=== PATIENT | female | born 1975 | race Caucasian/White ===

== ENCOUNTER 2021-05-08 06:40 | Emergency (ER) | payer BC ==
--- NOTE | 2021-05-08 06:57 | EDM.PDOC ---
<Danny Gimenez - Last Filed: 05/08/21 06:59> ED HPI GENERAL MEDICAL PROBLEM - General Chief Complaint: Cardiovascular Problem Stated Complaint: CHEST PAIN Time Seen by Provider: 05/08/21 06:45 - History of Present Illness INITIAL COMMENTS - FREE TEXT/NARRATIVE: CHIEF COMPLAINT(S): Chest pain HISTORY OF PRESENT ILLNESS: This is a 45-year-old woman with a past medical history of restless leg syndrome who comes to the emergency department with a chief complaint of chest pain. The patient states that for the last 2 days she has been experiencing chest pain. She describes the chest pain as dull with intermittent exacerbations located on the left side of her chest which radiates to her left arm and now up to her jaw. She states that she woke up this morning with some vomit in her throat but denies any nausea. She denies any diaphoresis. She states that the pain is worsened by lying flat. There are no relieving factors. She denies any recent travel, recent surgery, prior history of DVT or PE. She currently rates her pain as 8 out of 10. She denies any early onset CAD or sudden onset at young age in her family. She states that she does have a mild cough which is nonproductive and denies any fevers. She states that she is not vaccinated. She denies any personal history of CAD or CHF. She states that she tried gabapentin without any relief. In addition she states that the pain is making her feel short of breath. She denies any lower extremity edema. She denies any heavy lifting. REVIEW OF SYSTEMS: Constitutional: Denies fever, chills. Eyes: Denies eye pain Ears, Nose, Mouth, & Throat: Denies earache Cardiovascular: Positive for chest pain Respiratory: Positive for shortness of breath and nonproductive cough Gastrointestinal: Denies Nausea, vomiting, diarrhea, hematochezia. Genitourinary: Denies hematuria Skin:Denies a rash MSK: Positive for left arm pain Neurological: Denies blurred vision, numbness, tingling, weakness Psychiatric: Denies depression PAST MEDICAL HISTORY: As per history of present illness and as reviewed below otherwise noncontributory. SURGICAL HISTORY: As per history of present illness and as reviewed below otherwise noncontributory. LMP: 3 weeks ago SOCIAL HISTORY: As per history of present illness and as reviewed below otherwise noncontributory. FAMILY HISTORY: As per history of present illness and as reviewed below otherwise noncontributory. EXAMINATION OF ORGAN SYSTEMS/BODY AREAS: Constitutional: Blood pressure was 144/91, heart rate 102, respiratory rate 18 with an oxygen saturation 97% on room air. General: Young woman who appears to be in a moderate amount of pain. Patient is tearful and crying Psychiatric: Appropriate mood and affect. Eyes: No scleral icterus or conjunctival erythema ENMT: Moist mucous membranes. No pharyngeal erythema Cardiovascular: Tachycardic but regular no gallops, murmurs, or rubs. Bilateral upper extremity pulses symmetric and intact. No peripheral edema. No JVD. Respiratory: Lungs clear to auscultation bilaterally. No wheezes, rales, or rhonchi. Gastrointestinal: Soft, non-tender, non-distended. Normoactive bowel sounds Genitourinary: No suprapubic tenderness Musculoskeletal: Normal range of motion. Skin: No lesions or abrasions. Neurological: Alert, GCS 15 strength and sensation grossly intact in upper and lower extremities bilaterally MEDICAL DECISION MAKING AND COURSE IN THE ED WITH INTERPRETATION/REVIEW OF DIAGNOSTIC STUDIES: This is a 45-year-old woman with a past medical history of restless leg syndrome who comes to the emergency department with left-sided chest pain associate with shortness of breath and nonproductive cough. At this time patient's vital signs are stable. The patient appears nontoxic. We did obtain a screening EKG which was unremarkable. Cardiac monitoring at this time did reveal sinus rhythm and pulse oximetry with good waveform was 98% on room air. Given the typical story will obtain a cardiac work-up however she is low risk for ACS given her age and risk factors. We will provide the patient with 324 mg of p.o. aspirin. PERC Rule Age (>/=50): No (0) HR (>/=100): Yes (1) SaO2 on RA <95%: No (0) Unilateral Leg Swelling: No (0) Hemoptysis: No (0) Surgery/Trauma in last month requiring general anesthesia: No (0) Prior PE or DVT: : No (0) Hormone Use: No (0) PERC positive Since PERC Positive, we will obtain a D-dimer to further evaluate for PE DDx: ACS, musculoskeletal strain, pulmonary embolism Patient came during signout. Patient was signed out to [facility] day team physician pending work-up and final disposition. [facility] CONDITION: Fair PROCEDURES: Cardiac monitoring interpretation, pulse oximetry interpretation FINAL IMPRESSION(S)/DIAGNOSES: 1. Acute chest pain 2. Acute shortness of breath 3. Acute nonproductive cough Danny Gimenez M.D. - Related Data Allergies Allergy/AdvReac Type Severity Reaction Status Date / Time No Known Allergies Allergy Verified 05/08/21 06:48 Home Meds: Home Meds ALPRAZolam [Xanax] 0.25 mg PO TID PRN #12 tablet 05/08/21 [Rx] Gabapentin [Neurontin] 300 mg PO QID 05/08/21 [History] Hydrocodone/Acetaminophen [HYDROcodone-Acetaminophen 5-325 MG] 1 each PO Q6H PRN #14 tab 05/08/21 [Rx] Social & Family History - Tobacco Use Second Hand Smoke Exposure: No - Caffeine Use Caffeine Use: Reports: None - Recreational Drug Use Recreational Drug Use: No ED ROS GENERAL - Review of Systems Review Of Systems: See Below ED EXAM, GENERAL - Physical Exam Exam: See Below Departure - Departure Disposition: Home, Self-Care 01 Clinical Impression: COVID-19 Instructions: COVID-19: What to Do If You Are Sick- [facility] (07/31/2020) Referrals: PCP,None [Primary Care Provider] - Forms: ED Department Discharge Additional Instructions: Your COVID-19 test is positive. You should self isolate until cleared by the [facility]. I sent prescriptions to [facility]. Please be mindful not to use these together as they can both be respiratory depressants. If you have worsening shortness of breath or chest pain you should come back to the hospital for reassessment. Right now your chest x-ray and all of your labs look great. I did refer you to the infusion clinic for monoclonal antibody infusion. Once you have been symptom-free for 2 weeks you will be eligible for the Covid vaccine. I would encourage you to get vaccinated against Covid. And others a lot of misinformation on the Internet, but in my practice I have seen vaccinated patients do much better than unvaccinated patients, and I believe it is the only way that is a country we will get over this very difficult time. I know us healthcare professionals would really appreciate if more people were vaccinated. Thank you so much for trusting us with your medical care today, and if you need anything or if anything changes, we are always available for your service. The following information is given to patients seen in the emergency department who are being discharged to home. This information is to outline your options for follow-up care. We provide all patients seen in our emergency department with a follow-up referral. The need for follow-up, as well as the timing and circumstances, are variable depending upon the specifics of your emergency department visit. If you don't have a primary care physician on staff, we will provide you with a referral. We always advise you to contact your personal physician following an emergency department visit to inform them of the circumstance of the visit and for follow-up with them and/or the need for any referrals to a consulting specialist. The emergency department will also refer you to a specialist when appropriate. This referral assures that you have the opportunity for follow-up care with a specialist. All of these measure are taken in an effort to provide you with optimal care, which includes your follow-up. Under all circumstances we always encourage you to contact your private physician who remains a resource for coordinating your care. When calling for follow-up care, please make the office aware that this follow-up is from your recent emergency room visit. If for any reason you are refused follow-up, please contact the [facility] Emergency Department at and asked to speak to the emergency department charge nurse. Please follow up with your primary care physician. If you do not have a primary care physician, see below: [facility] [address] [place] [address] [facility] [address] [place] [address] [facility] [address] [place] [address] Sepsis Event Note (ED) - Evaluation Sepsis Screening Result: No Definite Risk <Les Smith - Last Filed: 05/08/21 08:22> ED HPI GENERAL MEDICAL PROBLEM - General Source of Information: Reports: Patient History Limitations: Reports: No Limitations Chest Pain Score (Numeric/FACES): 8 Course - Vital Signs Last Recorded V/S: Last Vital Signs Temp 97.5 F 05/08/21 06:44 Pulse 102 H 05/08/21 08:03 Resp 16 05/08/21 08:03 BP 123/92 H 05/08/21 08:03 Pulse Ox 96 05/08/21 08:03 - Orders/Labs/Meds Labs: Laboratory Tests 05/08/21 05/08/21 05/08/21 Range/Units 06:46 06:46 06:46 WBC 4.41 (4.0-11.0) K/uL RBC 4.53 (4.30-5.90) M/uL Hgb 12.2 (12.0-16.0) g/dL Hct 37.8 (36.0-46.0) % MCV 83.4 (80.0-98.0) fL MCH 26.9 L (27.0-32.0) pg MCHC 32.3 (31.0-37.0) g/dL RDW Std Deviation 51.5 (28.0-62.0) fl RDW Coeff of Bruce 17 H (11.0-15.0) % Plt Count 287 (150-400) K/uL MPV 9.70 (7.40-12.00) fL Neut % (Auto) 58.0 (48.0-80.0) % Lymph % (Auto) 24.0 (16.0-40.0) % Clinch % (Auto) 16.8 H (0.0-15.0) % Eos % (Auto) 0.7 (0.0-7.0) % Baso % (Auto) 0.5 (0.0-1.5) % Neut # (Auto) 2.6 (1.4-5.7) K/uL Lymph # (Auto) 1.1 (0.6-2.4) K/uL Clinch # (Auto) 0.7 (0.0-0.8) K/uL Eos # (Auto) 0.0 (0.0-0.7) K/uL Baso # (Auto) 0.0 (0.0-0.1) K/uL Nucleated RBC % 0.0 /100WBC Nucleated RBCs # 0 K/uL D-Dimer, Quantitative 0.36 (0.0-0.50) mg/L FEU Sodium 137 (136-145) mmol/L Potassium 4.0 (3.5-5.1) mmol/L Chloride 102 (98-107) mmol/L Carbon Dioxide 22.0 (21.0-32.0) mmol/L BUN 12 (7.0-18.0) mg/dL Creatinine 0.9 (0.6-1.0) mg/dL Est Cr Clr Drug Dosing 61.12 mL/min Estimated GFR (MDRD) > 60.0 ml/min Glucose 158 H (74-106) mg/dL Calcium 8.9 (8.5-10.1) mg/dL Magnesium 1.8 (1.8-2.4) mg/dL Troponin I < 0.050 (0.000-0.056) ng/mL Influenza Type A RNA (NEGATIVE) Influenza Type B RNA (NEGATIVE) SARS-CoV-2 RNA (TL) (NEGATIVE) 05/08/21 Range/Units 06:48 WBC (4.0-11.0) K/uL RBC (4.30-5.90) M/uL Hgb (12.0-16.0) g/dL Hct (36.0-46.0) % MCV (80.0-98.0) fL MCH (27.0-32.0) pg MCHC (31.0-37.0) g/dL RDW Std Deviation (28.0-62.0) fl RDW Coeff of Bruce (11.0-15.0) % Plt Count (150-400) K/uL MPV (7.40-12.00) fL Neut % (Auto) (48.0-80.0) % Lymph % (Auto) (16.0-40.0) % Clinch % (Auto) (0.0-15.0) % Eos % (Auto) (0.0-7.0) % Baso % (Auto) (0.0-1.5) % Neut # (Auto) (1.4-5.7) K/uL Lymph # (Auto) (0.6-2.4) K/uL Clinch # (Auto) (0.0-0.8) K/uL Eos # (Auto) (0.0-0.7) K/uL Baso # (Auto) (0.0-0.1) K/uL Nucleated RBC % /100WBC Nucleated RBCs # K/uL D-Dimer, Quantitative (0.0-0.50) mg/L FEU Sodium (136-145) mmol/L Potassium (3.5-5.1) mmol/L Chloride (98-107) mmol/L Carbon Dioxide (21.0-32.0) mmol/L BUN (7.0-18.0) mg/dL Creatinine (0.6-1.0) mg/dL Est Cr Clr Drug Dosing mL/min Estimated GFR (MDRD) ml/min Glucose (74-106) mg/dL Calcium (8.5-10.1) mg/dL Magnesium (1.8-2.4) mg/dL Troponin I (0.000-0.056) ng/mL Influenza Type A RNA NEGATIVE (NEGATIVE) Influenza Type B RNA NEGATIVE (NEGATIVE) SARS-CoV-2 RNA (TL) POSITIVE H (NEGATIVE) Meds: Medications Discontinued Medications Generic Name Dose Route Start Last Admin Trade Name Freq PRN Reason Stop Dose Admin Acetaminophen 1,000 mg 05/08/21 07:17 05/08/21 07:21 Acetaminophen 500 Mg Tab PO 05/08/21 07:18 1,000 mg ONETIME ONE Administration Hydrocodone Bitart/Acetaminophen 1 tab 05/08/21 06:59 Acetaminophen/Hydrocodone 325-5 Mg Tab PO 05/08/21 07:00 ONETIME ONE - Re-Assessments/Exams Free Text/Narrative Re-Assessment/Exam: 05/08/21 07:15 Patient care transitioned from Dr. Gimenez pending labs, imaging, and patient reassessment. 05/08/21 07:19 Percocet d/c'ed as patient does not have a ride home and cannot call anyone for a ride back; will trial tylenol. She does not note a relief of pain after initial meds. 05/08/21 07:36 HEART score = 2 (low score, risk of MACE 0.9-1.7%) 05/08/21 08:15 Patient's COVID test is positive. CXR is normal. D-dimer is negative. Return precautions were discussed at great length. Patient's pain still 7/10; we had a long discussion regarding analgesia and I am comfortable prescribing a short course of norco to this patient. She understands risks/benefits of opioid therapy. Patient also has a lot of anxiety and is requesting a short course of anxiolytic. Patient has taken xanax in the past without adverse reaction and is requesting a short prescription until telemedicine appointment with her physician on Wednesday. I believe this is reasonable, although I cautioned patient about using these two medications together as they are both respiratory depressants, and she understands. Will refer patient for monoclonal antibody therapy. Departure - Departure Time of Disposition: 08:18 Condition: Good Sepsis Event Note (ED) - Focused Exam Vital Signs: Vital Signs Temp Pulse Resp BP Pulse Ox 05/08/21 08:03 102 H 16 123/92 H 96 05/08/21 07:30 100 18 154/92 H 96 05/08/21 06:44 97.5 F 104 H 20 144/91 H 97
[2021-05-08] MEDS ORDERED: Acetaminophen/HYDROcodone 325-5 MG Tab PO ONE (06:59)
--- NOTE | 2021-05-08 07:01 | PCM.EKG ---
#1 Interpretation EKG Date: 05/08/21 Time: 06:44 Rhythm: NSR Rate (Beats/Min): 96 [place]: Normal P-Wave: Present QRS: Normal ST-T: Normal QT: Normal Comparison: NA - No Prior EKG (Sinus Rhythm)
--- NOTE | 2021-05-08 07:09 | CR ---
INDICATION: Chest pain. TECHNIQUE: Chest 1 views. COMPARISON: None. FINDINGS: Cardiovascular and mediastinum: Heart size and vasculature are normal in caliber and appearance. Lungs and pleural spaces: Lungs are clear. No sign of infiltrate or mass. No sign of pleural effusion. No pneumothorax. Bones and soft tissues: No significant findings. IMPRESSION: No acute or significant findings. Dictated by William Upton MD @ 05/08/2021 7:08:00 AM (Electronically Signed)
[2021-05-08] MEDS ORDERED: Acetaminophen 500 MG Tab PO ONE (07:17)
[2021-05-08 07:20] LABS: BLOOD UREA NITROGEN,BUN 12 mg/dL (7.0-18.0); CHLORIDE,CL 102 mmol/L (98-107); GLUCOSE RANDOM 158 mg/dL (74-106); SODIUM,NA 137 mmol/L (136-145)
[2021-05-08 07:31] LABS: CORONAVIRUS COVID-19 NAA POSITIVE (NEGATIVE); INFLUENZA A NAA NEGATIVE (NEGATIVE); INFLUENZA B NAA NEGATIVE (NEGATIVE)
== END 2021-05-08 08:45 | disposition home or self-care (01) ==
LOC: MW.ED 06:40
DX: U07.1 COVID-19 (principal)
CPT/HCPCS: 0240U; 36415; 71045; 80048; 83735; 84484; 85025; 85379; 93005; 99285; A9270

== ENCOUNTER 2021-05-17 22:12 | Emergency (ER) | payer BC ==
[2021-05-17] MEDS ORDERED: Cephalexin 500 MG Cap PO ONE (22:43)
[2021-05-17] MEDS ORDERED: Ibuprofen 600 MG Tab PO ONE (22:43)
--- NOTE | 2021-05-17 23:37 | CR ---
Indication: Trauma and pain Technique: Left shoulder 3 views. Comparison: None Findings: Bones: Alignment is normal. No fractures or bone lesions. Joint spaces: Unremarkable. Soft tissues: Unremarkable. Impression: No sign of acute injury. Dictated by William Upton MD @ 05/17/2021 11:35:36 PM (Electronically Signed)
--- NOTE | 2021-05-17 23:44 | EDM.PDOC ---
ED HPI GENERAL MEDICAL PROBLEM - General Chief Complaint: General Stated Complaint: COVID SYMPTOMS Time Seen by Provider: 05/17/21 22:34 - History of Present Illness INITIAL COMMENTS - FREE TEXT/NARRATIVE: HISTORY AND PHYSICAL: History of present illness: 45-year-old female with recent diagnosis of coronavirus who is status post Regeneron treatment who presents ER today secondary to generalized malaise, weakness, fatigue, body aches, left shoulder pain, right tooth pain. Patient reports that she was here and diagnosed with coronavirus. She reports that she received Regeneron therapy and has been feeling diffuse body aches since. Patient was here earlier today and stayed in the ED waiting room for a short while prior to going home. Patient presents back to the ER because her tooth hurts in the right upper jaw as well as having pain to her left shoulder. Patient reports that she tripped and fell approximately 3 days ago has been having pain and discomfort in that area since. Patient denies any shortness of breath. Patient reports that she has diffuse body aches. Patient denies any calf tenderness, hemoptysis. Patient denies any history of DVT/PE in the past. Patient reports that she is got some shortness of breath with a nonproductive cough. Patient denies any chest pain or discomfort aside the pain that she experiences when she has coughing. Review of systems: As per history of present illness and below otherwise all systems reviewed and negative. Past medical history: As per history of present illness and as reviewed below otherwise noncontributory. Surgical history: As per history of present illness and as reviewed below otherwise noncontributory. Social history: No reported history of drug abuse. Family history: As per history of present illness and as reviewed below otherwise noncontributory. Physical exam: HEENT: Atraumatic, normocephalic, pupils reactive, negative for conjunctival pallor or scleral icterus, mucous membranes moist, throat clear, neck supple, nontender, trachea midline. Lungs: Clear to auscultation, breath sounds equal bilaterally, chest nontender. Heart: S1S2, regular, negative for clicks, rubs, or JVD. Abdomen: Soft, nondistended, nontender. Negative for masses or hepatosplenomegaly. Negative for costovertebral tenderness. Pelvis: Stable nontender. Genitourinary: Deferred. Rectal: Deferred. Extremities: Atraumatic, negative for cords or calf pain. Neurovascular unremarkable. Neuro: Awake, alert, oriented. Cranial nerves II through XII unremarkable. Cerebellum unremarkable. Motor and sensory unremarkable throughout. Exam nonfocal. Diagnostics: Patient can be excluded for pulmonary embolism based on PERC criteria: No tachycardia, 0 No hypoxia (>/=95%), 0 No history of prior DVT or PE. 0 No recent trauma or surgery,0 No hemoptysis, 0 No exogenous estrogen 0 No unilateral leg swelling.0 Patient is < 50 years old. 0 Score 0 (if score is 0, per perc, pt has < 2% chance of PE since mt pretest probability was low (less than 15%)). X-ray left shoulder reveals no acute fracture or injury. Therapeutics: Ibuprofen/Keflex Assessment and plan: 45-year-old female with a recent diagnosis of coronavirus who presents ER today with continued symptoms of coronavirus infection. Patient pulse ox is 98 to 99% on room air. Patient is clinically hemodynamically stable. Patient's heart rate is 76 and does not appear to be in any acute distress. Patient does have some pain and discomfort to her left shoulder. Patient has full range of motion intact however she does have some pain discomfort with range of motion. Patient is neurovascularly intact. Patient also has tenderness to palpation to her right upper premolar teeth. My DME note: A left arm sling will be applied to assist with healing of a left shoulder injury. Patient likely sustained ligamentous injury with the fall. Sling should be applied for 1 week. Patient's x-ray of her left shoulder is normal. Patient be discharged home with prescription for ibuprofen and Keflex help her with her dental pain in her left shoulder pain. Reassessment at the time of disposition demonstrates that the patient is in no acute distress. The patient has remained stable throughout the entire ED visit and is without objective evidence for acute process requiring urgent intervention or hospitalization. The patient is stable for discharge, counseling is provided as documented above, discussed symptomatic treatment and specific conditions for return. I have spoken with the patient/caregiver and discussed todays findings, in addition to providing specific details for the plan of care. Questions are answered and there is agreement with the plan. Definitive disposition and diagnosis as appropriate pending reevaluation and review of above. Generalized Pain Score (Numeric/FACES): 10 - Related Data Allergies Allergy/AdvReac Type Severity Reaction Status Date / Time No Known Allergies Allergy Verified 05/17/21 22:24 Home Meds: Home Meds Ibuprofen 600 mg PO Q6HR PRN #30 tablet 05/17/21 [Rx] cephALEXin [Keflex] 500 mg PO Q8H #30 cap 05/17/21 [Rx] Past Medical History - Past Health History Medical/Surgical History: Denies Medical/Surgical History Psychiatric History: Reports: Anxiety, Depression - Infectious Disease History Infectious Disease History: Reports: Chicken Pox, Novel Coronavirus Social & Family History - Family History Family Medical History: No Pertinent Family History - Tobacco Use Tobacco Use Status *Q: Current Every Day Tobacco User Years of Tobacco use: 20 Packs/Tins Daily: 0.5 - Caffeine Use Caffeine Use: Reports: Soda - Recreational Drug Use Recreational Drug Use: No ED ROS GENERAL - Review of Systems Review Of Systems: See Below ED EXAM, GENERAL - Physical Exam Exam: See Below Course - Vital Signs Last Recorded V/S: Last Vital Signs Temp 98.2 F 05/17/21 22:21 Pulse 79 05/17/21 22:21 Resp 18 05/17/21 22:21 BP 156/87 H 05/17/21 22:21 Pulse Ox 98 05/17/21 22:21 - Orders/Labs/Meds Meds: Medications Discontinued Medications Generic Name Dose Route Start Last Admin Trade Name Melba PRN Reason Stop Dose Admin Cephalexin 500 mg 05/17/21 22:43 05/17/21 23:07 Cephalexin 500 Mg Cap PO 05/17/21 22:44 500 mg ONETIME ONE Administration Ibuprofen 600 mg 05/17/21 22:43 05/17/21 23:06 Ibuprofen 600 Mg Tab PO 05/17/21 22:44 600 mg ONETIME ONE Administration Departure - Departure Time of Disposition: 23:45 Disposition: Home, Self-Care 01 Condition: Good Clinical Impression: Dental abscess, Left shoulder pain, COVID-19 virus infection - Discharge Information Instructions: 10 Things You Can Do to Manage Your COVID-19 Symptoms at Home - [facility] (11/29/2020), Shoulder Pain, Dental Abscess Additional Instructions: You were seen and evaluated in the ER today for persistent symptoms of your Covid infection. This will take time for you start feeling better. Your oxygen level is still maintaining within an acceptable range. Your x-ray of your left shoulder shows no fracture. You will be given a prescription for ibuprofen and Keflex help you with your dental pain. Please make an appointment see deficits as soon as you can. The following information is given to patients seen in the emergency department who are being discharged to home. This information is to outline your options for follow-up care. We provide all patients seen in our emergency department with a follow-up referral. The need for follow-up, as well as the timing and circumstances, are variable depending upon the specifics of your emergency department visit. If you don't have a primary care physician on staff, we will provide you with a referral. We always advise you to contact your personal physician following an emergency department visit to inform them of the circumstance of the visit and for follow-up with them and/or the need for any referrals to a consulting specialist. The emergency department will also refer you to a specialist when appropriate. This referral assures that you have the opportunity for follow-up care with a specialist. All of these measure are taken in an effort to provide you with optimal care, which includes your follow-up. Under all circumstances we always encourage you to contact your private physician who remains a resource for coordinating your care. When calling for follow-up care, please make the office aware that this follow-up is from your recent emergency room visit. If for any reason you are refused follow-up, please contact the [facility] Emergency Department at and asked to speak to the emergency department aston robin nurse. [facility] [address] [place] [id number] [address] [address] Sepsis Event Note (ED) - Evaluation Sepsis Screening Result: No Definite Risk - Focused Exam Vital Signs: Vital Signs Temp Pulse Resp BP Pulse Ox 05/17/21 22:21 98.2 F 79 18 156/87 H 98
[2021-05-17] MEDS ORDERED: traMADol 50 MG Tab PO ONE (23:49)
== END 2021-05-17 23:56 | disposition home or self-care (01) ==
LOC: MW.ED 22:12
DX: U07.1 COVID-19 (principal); K04.7 Periapical abscess without sinus; M25.512 Pain in left shoulder; Z72.0 Tobacco use
CPT/HCPCS: 73030; 99283; A9270

== ENCOUNTER 2021-06-05 13:59 | Emergency (ER) | payer BC ==
[2021-06-05] MEDS ORDERED: Ibuprofen 600 MG Tab PO ONE (14:56)
[2021-06-05] MEDS ORDERED: Azithromycin 250 MG Tab PO ONE (14:56)
== END 2021-06-05 15:24 | disposition home or self-care (01) ==
LOC: MW.ED 13:59
DX: J02.9 Acute pharyngitis, unspecified (principal); Z72.0 Tobacco use
CPT/HCPCS: 99282; A9270